=== PATIENT | female | born 1940 | race Caucasian/White ===

== ENCOUNTER 2024-11-05 17:45 | Inpatient (IN) | payer MEDICARE ==
[~2024-11-05] VITALS: Ht 165.1 cm; Wt 63.5 kg
[2024-11-05] MEDS ORDERED: MELA1TAB53 PO (18:17)
[2024-11-05] MEDS ORDERED: ATOR10TA PO (18:17)
[2024-11-05] MEDS ORDERED: POLY17PO4 PO (18:17)
[2024-11-05] MEDS ORDERED: CYAN100096 PO (18:17)
[2024-11-05] MEDS ORDERED: CHOL3000 PO (18:17)
[2024-11-05] MEDS ORDERED: ZOLP5TAB8 PO (18:17)
[2024-11-05] MEDS ORDERED: ALEN70TA3 PO (18:17)
[2024-11-05] MEDS ORDERED: CARV6.252 PO (18:17)
[2024-11-05 18:21] LABS: BASOPHILS # (AUTO) 0.1 K/UL (0.0-0.2); BASOPHILS % (AUTO) 0.8 % (0.0-2.0); EOSINOPHILS # (AUTO) 0.1 K/uL (0.0-0.7); HEMATOCRIT 36.4 % (31.2-41.9); HEMOGLOBIN 12.3 g/dL (10.9-14.3); LYMPHOCYTES # (AUTO) 0.9 K/uL (0.8-4.8); LYMPHOCYTES % (AUTO) 12.7 % (20.5-51.5); MEAN CORPUSCULAR HEMOGLOBIN 29.3 uug (24.7-32.8); MEAN CORPUSCULAR HGB CONC 34 g/dL (32.3-35.6); MEAN CORPUSCULAR VOLUME 86.8 fL (75.5-95.3); MONOCYTES % (AUTO) 14.1 % (0.0-11.0); NEUTROPHILS # (AUTO) 4.7 K/uL (1.8-8.9); NEUTROPHILS % (AUTO) 70.4 % (38.5-71.5); PLATELET COUNT (AUTO) 321 K/uL (179-408); RED CELL DISTRIBUTION WIDTH 13.2 % (12.3-17.7); WHITE BLOOD COUNT (AUTO) 6.7 K/uL (3.8-11.8)
[2024-11-05 18:23] LABS: DIFFERENTIAL COMMENT 1
[2024-11-05 18:35] LABS: ALANINE AMINOTRANSFERASE 32 U/L (14-59); ALBUMIN 2.3 g/dL (3.4-5.0); ASPARTATE AMINOTRANSFERASE 33 U/L (15-37); BILIRUBIN,DIRECT 0.2 mg/dL (0.0-0.2); BILIRUBIN,TOTAL 0.7 mg/dL (0.2-1.0); CALCIUM 9.2 mg/dL (8.5-10.1); CARBON DIOXIDE 30 mmol/L (21-32); CHLORIDE 101 mmol/L (98-107); POTASSIUM 3.8 mmol/L (3.5-5.1); SODIUM SERUM 140 mmol/L (136-145); TOTAL PROTEIN, SERUM 6.2 g/dL (6.4-8.2); UREA NITROGEN, BLOOD 17 mg/dL (7-18)
[2024-11-05 18:36] LABS: ACETAMINOPHEN < 2.0 ug/mL (10-30); ETHANOL < 3 MG/DL (0-10)
[2024-11-05 18:45] LABS: ALKALINE PHOSPHATASE 69 U/L (50-136); GLUCOSE 114 mg/dL (74-106)
[2024-11-05] MEDS ORDERED: LORAZEPAM 1 MG TABLET PO PRN (22:45)
[2024-11-05] MEDS ORDERED: MAGNESIUM HYDROXIDE 30 ML LIQUID UDC PO PRN (22:45)
[2024-11-05] MEDS ORDERED: TEMAZEPAM 7.5 MG CAPSULE PO PRN (22:45)
[2024-11-05] MEDS ORDERED: MAG HYDROX/AL HYDROX/SIMETH 30 ML LIQUID UDC PO PRN (22:45)
[2024-11-05 23:00] VITALS: BP 183/93; TEMP 98.2; O2SAT 95
[2024-11-05] MEDS: TEMAZEPAM 7.5 MG CAPSULE PO PRN (23:52)
[2024-11-06 08:07] VITALS: BP 146/94; TEMP 98.1; O2SAT 95
[2024-11-06 09:54] LABS: ALANINE AMINOTRANSFERASE 32 U/L (14-59); ALBUMIN 2.5 g/dL (3.4-5.0); ALKALINE PHOSPHATASE 76 U/L (50-136); ASPARTATE AMINOTRANSFERASE 28 U/L (15-37); BILIRUBIN,DIRECT 0.1 mg/dL (0.0-0.2); BILIRUBIN,TOTAL 0.7 mg/dL (0.2-1.0); CALCIUM 8.9 mg/dL (8.5-10.1); CARBON DIOXIDE 29 mmol/L (21-32); CHLORIDE 100 mmol/L (98-107); GLUCOSE 124 mg/dL (74-106); POTASSIUM 3.4 mmol/L (3.5-5.1); SODIUM SERUM 138 mmol/L (136-145); TOTAL PROTEIN, SERUM 6.4 g/dL (6.4-8.2); UREA NITROGEN, BLOOD 11 mg/dL (7-18)
[2024-11-06] MEDS ORDERED: MIRALAX 17 GM POWD.PACK PO PRN (14:45)
[2024-11-06] MEDS: CARVEDILOL 6.25 MG TABLET PO SCH (16:54)
[2024-11-06] MEDS: SERTRALINE HCL 50 MG TABLET PO SCH (16:54)
[2024-11-06 17:00] VITALS: BP 183/95; TEMP 98.2; O2SAT 96
[2024-11-06] MEDS: POTASSIUM CHLORIDE 20 MEQ TAB.PRT.SR PO ONE (17:42)
[2024-11-06 20:00] VITALS: BP 165/95; TEMP 97.2; O2SAT 94
[2024-11-06] MEDS: LORAZEPAM 0.5 MG TABLET PO PRN (20:35)
[2024-11-06] MEDS: ATORVASTATIN 10 MG TABLET PO SCH (20:35)
[2024-11-07 06:34] LABS: *BILIRUBIN,URIN NEGATIVE (NEGATIVE); *BLOOD, URINE 1+ (NEGATIVE); *COLOR,URINE YELLOW (YELLOW); *KETONES,URINE NEGATIVE (NEGATIVE); *PROTEIN,URINE 2+ (NEGATIVE); LEUKOCYTE ESTERASE ,URINE 1+ (NEGATIVE); NITRITE, URINE NEGATIVE (NEGATIVE); PH,URINE 7.5 (5.0-8.0); UGLUCOSE NEGATIVE (NEGATIVE)
[2024-11-07 06:35] LABS: *AMPHETAMINE, URINE NEGATIVE (NEGATIVE); *BARBITURATE, URINE NEGATIVE (NEGATIVE); *BENZODIAZEPINE, URINE NEGATIVE (NEGATIVE); *CANNABINOID, URINE NEGATIVE (NEGATIVE); *CLARITY,URINE CLOUDY (CLEAR); *COCCAINE, URINE NEGATIVE (NEGATIVE); *OPIATE, URINE NEGATIVE (NEGATIVE); *PHENCYCLIDINE SCREEN,URINE NEGATIVE (NEGATIVE); FENTANYL, URINE NEGATIVE (NEGATIVE)
[2024-11-07 06:36] LABS: BACTERIA,URINE MODERATE /HPF (NONE SEEN); SQUAMOUS EPITHELIAL CELL,UR MODERATE /HPF (NONE SEEN); WBC,URINE 20-50 /HPF (0-3)
[2024-11-07] MEDS: CYANOCOBALAMIN 1,000 MCG TABLET PO SCH (08:51)
[2024-11-07] MEDS: CHOLECALCIFEROL 1,000 UNIT TABLET PO SCH (08:52)
[2024-11-07] MEDS ORDERED: Medication Not On Formulary EA (Cholecalciferol (Vitamin D3) (Vitamin D3) 1 TAB) PO SCH (09:00)
[2024-11-07 14:55] VITALS: BP 151/85; TEMP 97.9; O2SAT 95
[2024-11-07 16:07] VITALS: BP 157/85; TEMP 97.9; O2SAT 95
[2024-11-07 20:00] VITALS: BP 120/78; TEMP 98; O2SAT 95
[2024-11-07] MEDS: CEphaleXIN 500 MG CAPSULE PO SCH (21:21)
[2024-11-08] MEDS: ALENDRONATE SODIUM 70 MG TABLET PO SCH (07:08)
[2024-11-08 16:00] VITALS: BP 146/48; TEMP 98.8; O2SAT 97
[2024-11-08 21:30] VITALS: BP 130/65; TEMP 98; O2SAT 98
[2024-11-09 16:04] VITALS: BP 140/80; TEMP 98.2; O2SAT 98
[2024-11-09 19:55] VITALS: BP 153/77; TEMP 98.1; O2SAT 96
[2024-11-10 16:04] VITALS: BP 137/74; TEMP 98; O2SAT 100
[2024-11-10 19:57] VITALS: BP 127/72; TEMP 98.2; O2SAT 96
[2024-11-11 07:45] VITALS: BP 115/62; TEMP 97.6; O2SAT 97
[2024-11-11] MEDS: SERTRALINE HCL 50 MG TABLET PO SCH (13:47)
[2024-11-11 16:00] VITALS: BP 151/74; TEMP 97.8; O2SAT 97
[2024-11-11] MEDS ORDERED: VANCOMYCIN IV 1,000 MG in IV DEXTROSE 5% 250 ML IV ONE (17:15)
[2024-11-11] MEDS ORDERED: CEFEPIME HCL 1 G in IV DEXTROSE 5% 50 ML IV SCH (17:15)
[2024-11-11 20:15] VITALS: BP 127/57; TEMP 97.6; O2SAT 95
[2024-11-12 07:57] VITALS: BP 140/60; TEMP 97.9; O2SAT 94
[2024-11-12 15:00] VITALS: BP 138/72; TEMP 98.4; O2SAT 96
[2024-11-12 20:00] VITALS: BP 141/64; TEMP 97.7; O2SAT 95
[2024-11-13 08:00] VITALS: BP 126/61; TEMP 97.3; O2SAT 100
[2024-11-13 09:19] VITALS: BP 147/70; TEMP 98.2; O2SAT 100
[2024-11-13 16:30] VITALS: BP 128/61; TEMP 97.3; O2SAT 100
[2024-11-13 20:00] VITALS: BP 128/67; TEMP 97.5; O2SAT 93
[2024-11-14 08:07] VITALS: BP 135/69; TEMP 98.2; O2SAT 96
[2024-11-14 16:04] VITALS: BP 100/62; TEMP 98; O2SAT 98
[2024-11-14 20:00] VITALS: BP 115/49; TEMP 97.8; O2SAT 97
[2024-11-15 08:05] VITALS: BP 132/63; TEMP 98.4; O2SAT 100
[2024-11-15 16:18] VITALS: BP 145/80; TEMP 97.8; O2SAT 100
[2024-11-15 20:03] VITALS: BP 146/74; TEMP 97.8; O2SAT 99
[2024-11-16] MEDS: ACETAMINOPHEN 325 MG TABLET PO PRN (02:28)
[2024-11-16 08:09] VITALS: BP 124/67; TEMP 97.6; O2SAT 96
[2024-11-16 16:16] VITALS: BP 136/68; TEMP 98; O2SAT 98
== END 2024-11-16 17:00 | disposition home or self-care (01) | DRG 885 ==
LOC: ER 17:45 → GPS 22:26
PROVIDERS: ADMIT Psychiatry & Neurology Psychosomatic Medicine
DX: F39 Unspecified mood [affective] disorder (principal); F33.9 Major depressive disorder, recurrent, unspecified; E44.0 Moderate protein-calorie malnutrition; N39.0 Urinary tract infection, site not specified; T42.4X2D Poisoning by benzodiazepines, intentional self-harm, subsequent encounter; T39.1X2D Poisoning by 4-Aminophenol derivatives, intentional self-harm, subsequent encounter; E78.5 Hyperlipidemia, unspecified; Z79.899 Other long term (current) drug therapy; E88.09 Other disorders of plasma-protein metabolism, not elsewhere classified; E87.6 Hypokalemia; I10 Essential (primary) hypertension; B96.20 Unspecified Escherichia coli [E. coli] as the cause of diseases classified elsewhere; Z79.83 Long term (current) use of bisphosphonates; I48.91 Unspecified atrial fibrillation
CPT/HCPCS: 36415; 85025; G0480; J8499